=== PATIENT | male | born 1955 | race Caucasian/White ===

== ENCOUNTER 2017-08-04 15:00 | Outpatient (RCR) | payer MEDICARE, SELFPAY ==
--- NOTE | 2017-07-01 11:13 | HP.PTEVAL_ITS ---
Patient's Visit Information DEYVI ARELLANO is a 61 year old M referred to Physical Therapy by Chidi Nash with a diagnosis of COPD. Date of Evaluation: 07/01/17 Physical Therapist: Migue Quiroz DPT, [place] - Visit Plan Frequency: 2x /Week Duration: 4 Weeks Plan: 2x/week for 4 weeks:]. Monitor HR and RR and pt to bring O2 sat gauge, Pt knows when he needs to rest and should keep HR<100 and RR <20. Rocky likely need short bouts of ex with rest. Please teach gentle body weight LE/band postural exercises patient can do at home and yoga flow of child's pose, down dog, up dog, cat/camel, and into core strength as tolerated. Chest opening exercises. Walk at beginning and end and one flight steps if tolerates well. Goal is to get these going as HEP when appropriate. - Subjective Subjective: COPD and emphysema. Hospitalized for exacerbation. Exacerbation started 2 weeks ago Friday with a cough heart rate went up and oxygen level went down. Was at an office at the time helping with network. 911 was called and went to ER and admitted to ICU. Has had minor attacks before at home and not hospitalized. 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 On O2 and has been for 1.5 years, currently at 6 l/min and that is normal for him over the last 5 years. Has finger scanner and can tell when he needs more. Out of breath at home with one flight of steps. Not employed, retired. Sleep is OK. Day is spent not doing a whole lot other than sweeping floor and home chores adn they can be challenging with COPD. Laundry is in basement and bathroom upstairs and this is sometimes hard due to breathing. Loves to garden in spring but has done less and less over last couple years. Feeling about the same as three weeks ago right now. Mental adjustments to condition has been tough. - Objective RHR 76bpm, on 6l/min O2 , 16 resp rate. 200 feet balance ambulation 100 bpm and 32 resp rate, 4 minutes to go back down. 7/10 RPE. Steps: 96 bpm and 20 resp rate after one flight., Needed to turn O2 up to continuous for a minute until feels good again. 5/10 RPE. LE adn UE AROM WFL adn without pain. reflexes bi and tri and patella and achilels 2/3. Sensation UE and LE WNL to gross light touch. Strength LE hips 4/5 and knees 4+ adn ankles 4+, UE strength 4/5. Posture is slumped kyphotic in the T/S, flat lordosis. coordination to reciprocal toe tap and heel tap is good. HS adn gastroc and hip piri and quads all mod to max tight. Lats and pec very tight also. - Balance Scores Functional Gait Assessment Score: 30 % Disability: 0 CATSIB Score (Max score 120 seconds): 120 - Goals Goal 1:: I approp HEP to maximize health Goal Time Frame: 2-4 Weeks Goal 2:: 200 feet ambulationa nd full flight steps with HR<90 bpm and not feeling >4/10 RPE. - Rehabilitation Potential Physical Therapy Diagnosis: COPD limiting mobility Rehabilitation Potential: Questionable - Anticipated Interventions Patient/Client Instruction: Educate patient on: Condition, Plan of Care For the Purpose of:: To improve nutrient delivery to tissue, To increase oxygenation perfusion, To improve muscle performance and motor function Therapeutic Exercise to Include: Strength training, Flexibilty training, Active ROM, Dynamic Lumbar Stabilization For the Purpose of:: To improve nutrient delivery to tissue, To increase oxygenation perfusion, To improve muscle performance and motor function, To improve ability of physical actions for home/community/work/leisure Thank you for the opportunity to evaluate your patient. For Medicare and Medicare HMO plans, please review the plan of care and approve it. It will need to be FAXED BACK to us at [phone] for Medicare purposes. Please let me know if there are questions or concerns regarding this plan of care. Physician Signature: Date:
--- NOTE | 2017-08-04 15:00 | DT_ITS ---
This patient was seen during an EMR downtime August 04, 2017 - August 11, 2017. This patient may have a combination of paper and electronic documentation or all paper documentation. All documentation is viewable within the e-chart portion of [employer] for each patient visit.
--- NOTE | 2017-08-12 12:48 | HP.PTDCSUM ---
HP - PT D/C Summary It has been my pleasure to treat DEYVI ARELLANO under orders from Chidi Nash, for the diagnosis of COPD for a total of 9 visit(s). Discharge Date: 08/12/17 Please see the following information for a summary of their discharge status. - Subjective Subjective: Lost 4#, recovers quicker, Doing HEP with bands daily 2x15. Stairs still make him out of breath and needs to recover. Running sweeper. Been out gardening and the heatr can get to him. Better than last year. Going to yoga on Friday and willc ontinue that 3x/week in conjunction with HEP. - Objective Objective/Function: Steps with only 4/10 RPE after. and HR 93 and spo2% at 93 immediately following steps adn FGA. Pt confident with continuing HEP on own and will seedoc in a week. - Goals Goal 1:: I approp HEP to maximize health Goal Progress: Goal Met Goal 2:: 200 feet ambulationa nd full flight steps with HR<90 bpm and not feeling >4/10 RPE. Goal Progress: Not tested - Plan Plan: D/C - D/C Information Discharge Comments: This info enetered later date due to computer downtime procedures. If there are questions or concerns regarding this patient's physical therapy, please feel free to call me at [phone]. Thank you for the referral of this patient. Sincerely, Migue Quiroz, DPT, [place]
== END 2017-08-04 19:00 | disposition home or self-care (01) ==
LOC: PT 15:00
PROVIDERS: Family Provider Nurse Practitioner Family; PCP Nurse Practitioner Family; Visit Provider Family Medicine
DX: J44.9 Chronic obstructive pulmonary disease, unspecified (principal)
CPT/HCPCS: 97110; 97162; 97530; G8979; G8980